=== PATIENT | female | born 1960 | race Two or more races ===

== ENCOUNTER → 2018-04-07 | Outpatient (CLI) | payer BC, OTHER ==
--- NOTE | 2018-04-07 12:06 | RADIOLOGY REPORT (SQ) ---
EXAM DESCRIPTION: MRI HEAD WITHOUT COMPLETED DATE/TIME: 04/07/2018 11:40 am REASON FOR STUDY: HEMIPLGA FOLLOWING OTH CEREBVASC DISEASE AFFECTING UNSP SIDE,WEAKNESS R53.1 WEAKN ESS I69.859 HEMIPLGA FOLLOWING OTH CEREBVASC DISEASE AFFECTING U COMPARISON: None. TECHNIQUE: Multiplanar imaging includes non-contrasted T1, T2, FLAIR, and diffusion with ADC map seq uences. Images stored on PACS. LIMITATIONS: None. FINDINGS: ANATOMY: No anomalies. Normal vascular flow voids. Pituitary fossa normal. CSF SPACES: Normal in size and contour. No hemorrhage. CEREBRUM: Sulci and gyri normal in size and contour. Normal white matter signal on FLAIR imaging. No evidence of hemorrhage, mass, or extraaxial fluid collection. POSTERIOR FOSSA: No signal alteration. No hemorrhage. No edema, masses or mass effect. Internal ramon tory canals, cerebello-pontine angles, mastoids normal. DIFFUSION IMAGING: Negative for acute or sub-acute infarction. ORBITS: No masses. Globes normal. PARANASAL SINUSES: No fluid levels. Mucosa normal. OTHER: No other significant finding. IMPRESSION: NORMAL MRI OF THE BRAIN WITHOUT INTRAVENOUS GADOLINIUM CONTRAST. EVIDENCE OF ACUTE STROKE: NO. TECHNICAL DOCUMENTATION: JOB ID: [id number] [employer]- All Rights Reserved Reading location - IP/workstation name: [email or web address]
--- NOTE | 2018-04-07 12:10 | RADIOLOGY REPORT (SQ) ---
EXAM DESCRIPTION: MRI LUMBAR SPINE WITHOUT COMPLETED DATE/TIME: 04/07/2018 11:40 am REASON FOR STUDY: HEMIPLGA FOLLOWING OTH CEREBVASC DISEASE AFFECTING UNSP SIDE,WEAKNESS R53.1 WEAKN ESS I69.859 HEMIPLGA FOLLOWING OTH CEREBVASC DISEASE AFFECTING U COMPARISON: None. TECHNIQUE: Sagittal and Axial imaging includes T1, T2, STIR and gradient echo sequences. Coronal T2/ HASTE imaging. LIMITATIONS: None. FINDINGS: VISUALIZED UPPER ABDOMEN: Limited evaluation. No acute or suspicious findings suggested. SEGMENTATION: No transitional anatomy. The lowest well-developed disc space is labeled L5-S1. ALIGNMENT: Anatomic. VERTEBRAE: Intact. BONE MARROW: Normal. No marrow replacement or reactive changes. DISC SIGNAL: Normal. No significant abnormal signal or loss of height. POSTERIOR ELEMENTS: Generally intact. No pars defect evident. HARDWARE: None in the spine. CORD AND CONUS: Normal in size and signal intensity. Conus at the appropriate level. SOFT TISSUES: No aortic aneurysm seen. No bulky retroperitoneal adenopathy or mass. No paraspinal mas s or fluid. L1-L2: No significant spinal stenosis or exit foraminal stenosis. L2-L3: No significant spinal stenosis or exit foraminal stenosis. L3-L4: Mild disc bulge with mild narrowing of the exit foramina. L4-L5: Generalized disc bulge. Asymmetric rightward facet ligamentous hypertrophy. Moderate narrowi ng of the right exit foramina mild narrowing of the left exit foramina. L5-S1: Asymmetric right word disc bulge with mild narrowing of the right exit foramina. LOWER THORACIC: Incompletely imaged. No stenosis seen. SACRUM: Visualized upper sacrum intact. OTHER: No other significant findings. IMPRESSION: Mild spondylosis most marked at L4-5 on the right with moderate narrowing of the right e xit foramina secondary to asymmetric facet and ligamentous hypertrophy and generalized disc bulge. . TECHNICAL DOCUMENTATION: JOB ID: [id number] [employer]- All Rights Reserved Reading location - IP/workstation name: [email or web address]
== END ==
LOC: RAD 10:40
PROVIDERS: ATTEND Internal Medicine
DX: I69.859 Hemiplegia and hemiparesis following other cerebrovascular disease affecting unspecified side (principal)
CPT/HCPCS: 70551; 72148